=== PATIENT | male | born 1935 | race Caucasian/White ===

== ENCOUNTER 2016-07-20 12:41 | Observation (INO) | payer MEDICARE, OTHER ==
--- NOTE | ~2016-07-20 | CR72 ---
[facility] A Service of [facility] & [facility] RADIOLOGY TEXT RESULTS PATIENT: LYN CARTER LOCATION: [place] [address] : 36 UNIT #: [id number] AGE: [address]: Nelly Sterling MD SEX: M ORDER DR: [id number] [facility] [address]. [place], [place] [address] [id number] MR#: [id number] Acc #: [id number] NAME: LYN CATRER : 1935 SEX: M STUDY DATE/TIME: 07/20/2016 17:01 UNIT: CEDOF ROOM: [facility] STUDY DESCRIPTION: CR Chest Single View Portable Attending Physician: Nelly Sterling M.D. Ordering Physician: Alcira Thomas M.D. Primary Care Physician: Primary Care Physician No MEDICAL IMAGING REPORT This report is preliminary unless electronic signature is present EXAM Portable chest 1 view, 07/20/2016 COMPARISON 08/19/2014 HISTORY Syncope today FINDINGS Left basilar opacity due to infiltrate or atelectasis, new since the prior study. There is probably mild cardiomegaly though submaximal inspiratory effort may exaggerate that appearance. There is no pneumothorax or acute bony finding. Dictated by... Dc Harper M.D. THIS IS AN ELECTRONICALLY VERIFIED REPORT Dc Harper M.D. at 07/23/2016 4:32 PM CAROLINE/cheikh TD: 07/21/2016 10:03 JOB #: [id number] MEDICAL IMAGING REPORT COPY
--- NOTE | ~2016-07-20 | US37 ---
[facility] A Service of [facility] & [facility] RADIOLOGY TEXT RESULTS PATIENT: LYN CARTER LOCATION: [facility] [id number] : 36 UNIT #: [id number] AGE: [address]: Nelly Sterling MD SEX: M ORDER DR: [id number] [facility] [address]. [place], [place] [address] [id number] MR#: [id number] Acc #: [id number] NAME: LYN CARTER : 1935 SEX: M STUDY DATE/TIME: 07/21/2016 9:49 UNIT: [facility] ROOM: [facility] STUDY DESCRIPTION: US Carotid W/Doppler Bilateral Attending Physician: Nelly Sterling M.D. Ordering Physician: Nelly Sterling M.D. Primary Care Physician: No Primary Care Physician MEDICAL IMAGING REPORT This report is preliminary unless electronic signature is present EXAM Carotid duplex scan date of examination 07/21/2016 HISTORY Syncope. Hypertension. Hyperlipidemia. Diabetes mellitus. FINDINGS The right common carotid artery has no plaque. There is a small amount of heterogeneous plaque in the right carotid bulb. The remainder of the right internal and external carotid artery are patent without plaque. Peak systolic velocity in the mid right internal carotid artery is 72 cm/sec with an end diastolic velocity of 19 cm/sec. The ICA/CCA ratio on the right is 1.23. Peak systolic velocity in the right external carotid artery is 67 cm/sec. The right vertebral artery is patent with antegrade flow. The left common carotid artery has no significant plaque. There is only a small amount of heterogeneous plaque in the left carotid bulb. The remainder of the left internal and external carotid artery are patent without plaque. Peak systolic velocity in the distal left internal carotid artery is 87 cm/sec with an end diastolic velocity of 21 cm/sec. The ICA/CCA ratio on the left is 1.12. Peak systolic velocity in the left external carotid artery is 88 cm/sec. The left vertebral artery is patent with antegrade flow. IMPRESSION 1. Small amount of plaque, but no significant stenosis (less than 50%) in the internal and external carotid arteries bilaterally. Patent vertebral arteries bilaterally with antegrade flow. [facility] A Service of [facility] & [facility] RADIOLOGY TEXT RESULTS PATIENT: LYN CARTER LOCATION: [facility] [id number] : 36 UNIT #: [id number] AGE: [address]: Nelly Sterling MD SEX: M ORDER DR: Dictated by... Nilay Claudio M.D. THIS IS AN ELECTRONICALLY VERIFIED REPORT Nilay Claudio M.D. at 07/23/2016 7:32 AM MARBELLA/julissa TD: 07/22/2016 02:38 JOB #: [id number] MEDICAL IMAGING REPORT COPY
--- NOTE | ~2016-07-20 | DS ---
Unit #: [id number] #: [id number] Patient: LYN CARTER [id number] [address] [place], [place] [address] [id number] MR#: [id number] NAME: LYN CARTER. ROOM: 57 Age: 81 Sex: M Admission Date: 07/20/2016 : 1935 Discharge Date: 07/22/2016 Attending Physician: Nelly Sterling M.D. DISCHARGE SUMMARY REASON FOR ADMISSION Weakness. HISTORY OF PRESENT ILLNESS/HOSPITAL COURSE The patient is an 81-year-old male with underlying history of chronic obstructive pulmonary disease, diabetes, hypertension, hyperlipidemia, and GERD, who was admitted secondary to above. He was initially noted to be in acute kidney injury with an elevated creatinine of 1.4 with a GFR of 51. His initial UA was positive and therefore he was admitted for the same. Apparently, he had seen his primary care physician earlier in the day and he actually had a syncopal episode while he was there. He underwent ultrasound of his carotids, which was negative for acute carotid stenosis as well as CT of head without contrast, which was negative as well. His final urine culture result did not yield any acute bacterial growth. While he was here, he was placed on Rocephin IV. His vitamin B12 level did come back decreased at 305. Cardiac enzymes were cycled. Orthostatics were also performed. All laboratory studies were otherwise unremarkable. 2D echo was ordered and done, results are currently pending. I have told him that today he may be discharged home. He should follow with his primary care physician in about 7 to 10 days for a 2D echocardiogram. Results at the time of discharge; his creatinine is 0.9. His GFR is greater than 60. I have discontinued his naproxen; otherwise, his home medications will remain the same. We will also give him prescription for Levaquin 250 mg p.o. daily x3 days despite his urine culture being negative, his initial urinalysis was quite abnormal and he should follow up with his PCP in approximately 7 days for repeat UA as well. DISCHARGE DIAGNOSES 1. Syncopal episode. 2. Acute kidney injury. 3. Diabetes, type 2. Unit #: [id number] #: [id number] Patient: LYN CARTER 4. Abnormal urinalysis, possible urinary tract infection. 5. Hypertension. 6. Hyperlipidemia. 7. Osteoarthritis. 8. Chronic obstructive pulmonary disease. DISCHARGE MEDICATIONS Remain unchanged from home medications. Dictated by... Shannon Graff/felicia TD: 07/25/2016 16:19 JOB #: [id number] DISCHARGE SUMMARY X Nelly Sterling MD X DISCHARGE SUMMARY
--- NOTE | ~2016-07-20 | EKG ---
PATIENT: LYN CARTER UNIT #: [id number] Ventricular Rate: 87 BPM Atrial Rate: 87 BPM P-R Interval: 164 ms QRS Duration: 98 ms Q-T Interval: 388 ms QTC Calculation(Bezet): 466 ms P [place]: 68 degrees Calculated R [place]: -36 degrees Calculated T [place]: 16 degrees Diagnosis Line: Sinus rhythm with occasional Premature ventricular Diagnosis Line: complexes Diagnosis Line: Left axis deviation Diagnosis Line: Abnormal ECG Diagnosis Line: When compared with ECG of 17-MAR-2014 08:27, Diagnosis Line: Premature ventricular complexes are now Present Diagnosis Line: Confirmed by DANILO ASCENCIO MD ([id number]) on 07/20/2016 Diagnosis Line: 4:48:01 PM INTERPRETING MD: SILVA LOU
--- NOTE | ~2016-07-20 | HP ---
Unit #: [id number] #: [id number] Patient: LYN CARTER [id number] [address] [address] [id number] MR#: [id number] NAME: LYN CARTER. ROOM: Age: 81 Sex: M Admission Date: 07/20/2016 : 1935 Attending Physician: Alisia Wood M.D. Primary Care Physician: No Primary Care Physician HISTORY AND PHYSICAL CHIEF COMPLAINT Weakness. HISTORY OF PRESENT ILLNESS The patient is an 81-year-old male with a past medical history of chronic obstructive pulmonary disease, diabetes, hypertension, hyperlipidemia, gastroesophageal reflux disease and osteoarthritis. He presented to the emergency department for evaluation of the above. The patient states that he has not been feeling well since 07/17/2016. He apparently had nausea, vomiting and diarrhea. He states that the vomiting has resolved. He had more than 10 bouts of nonbloody diarrhea yesterday, but he has not had any bowel movements today. He denies any abdominal pain. He has noticed decreased urine output, but no burning with urination. No chest pain. No palpitations. No fever. No cough or cold symptoms. He saw his primary care physician today and states that he started to feel "hot." He then passed out. He was brought to the emergency department for further evaluation. In the emergency department initial pulse and blood pressure were 77 and 98/69 respectively. Urinalysis showed findings concerning for urinary tract infection. He was given Levaquin in the emergency department. He is being admitted to [facility] for evaluation and further treatment. PAST MEDICAL HISTORY 1. Admission to [facility] March 03 through 2013 for right total knee replacement. 2. Diabetes. 3. Hypertension. 4. Hyperlipidemia. 5. Osteoarthritis. 6. Gastroesophageal reflux disease. 7. Chronic obstructive pulmonary disease. PAST SURGICAL HISTORY 1. Bilateral knee replacements. 2. Appendectomy. 3. Tonsillectomy. 4. Hemorrhoidectomy. 5. Hydrocele repair. 6. Bunionectomy. Unit #: [id number] #: [id number] Patient: LYN CARTER 7. Cholecystectomy. 8. Back surgery. SOCIAL HISTORY The patient lives with his . There is no tobacco or alcohol use. His code status is a full code. FAMILY HISTORY Notable for diabetes. ALLERGIES No known drug allergies. HOME MEDICATIONS 1. Avapro 150 mg daily. 2. Amaryl 2 mg daily. 3. Tradjenta 5 mg daily. 4. Pantoprazole 40 mg daily. 5. Naproxen 500 mg b.i.d. 6. Trilipix 135 mg daily. 7. Tamsulosin 0.4 mg b.i.d. 8. Lamisil 250 mg daily. 9. [place] 3 two g b.i.d. 10. Aspirin 81 mg daily. 11. Fexofenadine 180 mg b.i.d. 12. Lomotil. REVIEW OF SYSTEMS A complete review of systems is negative except as indicated in the history of present illness. PHYSICAL EXAMINATION GENERAL: The patient is a very pleasant male who appears younger than his stated age. VITALS: Temperature 97.9, pulse 77, respiratory rate 13, blood pressure 98/69, oxygen saturation 96% on room air. HEENT: The head is atraumatic. Mucous membranes are dry. NECK: Supple. Trachea midline. LUNGS: Clear to auscultation bilaterally with no increased work of breathing. HEART: Regular rate and rhythm. ABDOMEN: Soft, nontender, with bowel sounds present in all four quadrants. EXTREMITIES: Nontender with no pedal edema. NEUROLOGIC: The patient is awake and alert. He follows commands. PSYCHIATRIC: Mood and affect are normal. The patient is cooperative. SKIN: Skin of examined areas is warm and dry. DIAGNOSTIC STUDIES LABORATORY: Troponin is less than 0.05. CBC notable for hemoglobin 16.2, hematocrit 48.6 respectively. Urinalysis notable for 1+ leukocyte esterase, positive nitrate, 3+ protein, 100 glucose, 10-25 white blood cells, 2+ bacteria with just a few squamous cells, 10-25 granular casts also noted. INR 1.1. CMP notable for glucose 140, BUN 25, creatinine 1.4, AST 76, ALT 72, alkaline phosphatase 29, magnesium 1.8. CARDIOVASCULAR: EKG shows sinus rhythm with occasional PVCs and rate of 87 beats per minute. Unit #: [id number] #: [id number] Patient: LYN CARTER The patient is an 81-year-old male with 1. Syncope. The patient denies ever having a syncopal episode in the past. He had a cardiac catheterization in 1999 at [facility] (no records). 2. Urinary tract infection. There are no urine cultures in [facility] for review. He received Levaquin in the emergency department. 3. Acute kidney injury. The patient's creatinine was 1.1 on 05/04/2016 and it is 1.4 today. He has had decreased p.o. intake with vomiting and diarrhea. 4. Transaminitis. 5. Chronic obstructive pulmonary disease. 6. Diabetes. 7. Hypertension. 8. Hyperlipidemia. 9. Gastroesophageal reflux disease. 10. Osteoarthritis. PLAN 1. Admit for observation to intermediate level. 2. Healthy heart, consistent carb diet if passes bedside swallow. 3. Bedrest. 4. Fall precautions. 5. Orthostatics q. shift. 6. Two-dimensional echo. 7. Serial cardiac enzymes. 8. Monitor blood pressure closely. 9. Normal saline at 75 mL an hour. 10. Blood cultures times two. 11. Urine culture and sensitivity on urine in the lab. 12. Rocephin 1 g IV daily pending results of urine culture. 13. Supplemental oxygen. 14. P.r.n. duo-nebs. 15. Low-dose sliding scale insulin with Accu-Cheks. 16. Strict ins and outs. 17. Check CPK. 18. Bladder scan. 19. Chest x-ray. 20. Repeat labs in the morning. 21. SCDs for DVT prophylaxis. CODE STATUS Regarding code status, the patient is a full code. Dictated by Shannon Cabrales TD: 07/20/2016 16:10 JOB #: [id number] Unit #: [id number] #: [id number] Patient: LYN CARTER HISTORY AND PHYSICAL X Alcira Thomas MD HISTORY AND PHYSICAL
[~2016-07-20 12:41] MED LIST: ALLEGRA ALLERG180 MG PO; AMARYL1 MG PO; ASPIRINEC PO; AVAPRO300 M1 PO; FENOFIBRIC ACI135 MG PO; FISH OIL 1,001000 MG PO; FLOMAX0.4 M1 PO; GLUCOPHAGE500 M1 PO; NAPROSYN-EC500 M1 PO; NORCO 10-325 TA1 TAB PO; PANTOPRAZOLE SO40 MG PO; TRADJENTA5 MG PO
[2016-07-20 12:58] LABS: POC - CKMB 1.1 ng/mL (0.0-7.9); POC - TROPONIN <0.05 ng/mL (<=0.05)
[2016-07-20 13:02] LABS: URINE SOURCE CLEAN CATCH
[2016-07-20 13:03] LABS: BASOPHIL% 0.3 % (0-2.5); EOSINOPHIL# 0.1 X10e3 (0-0.7); EOSINOPHIL% 1.7 % (0.0-7.0); HEMATOCRIT 48.6 % (38.0-50.0); HEMOGLOBIN 16.2 gm/dL (13.0-16.0); LYMPHOCYTE# 1.2 X10e3 (1.0-3.5); LYMPHOCYTE% 18.9 % (17.0-45.0); MEAN CELL VOLUME 92.9 FL (83-96); MEAN CORPUSCULAR HGB CONC 33.4 g/dL (30-36); MONOCYTE# 0.6 X10e3 (0-1.0); MONOCYTE% 10.1 % (3.0-12.0); NEUTROPHIL# 4.3 X10e3 (1.5-7.1); PLATELET COUNT 209 X10e3 (140-420); RED BLOOD COUNT 5.23 X10e (3.90-5.60); RED CELL DISTRIBUTION WIDTH 13.9 % (11.0-15.5); WHITE BLOOD COUNT 6.3 X10e3 (4.0-10.5)
[2016-07-20 13:04] LABS: DIFF IND NO
[2016-07-20 13:05] LABS: URINE APPEARANCE TURBID; URINE BLOOD NEG (NEG); URINE COLOR DK YELLOW; URINE GLUCOSE 100 MG/DL (NEG); URINE KETONE TRACE (NEG); URINE LEUKOCYTE ESTERASE 1+ (NEG); URINE NITRATE POS (NEG); URINE PROTEIN 3+ (NEG)
[2016-07-20 13:08] LABS: CULTURE INDICATED? YES; URINE SQUAMOUS EPITHELIAL CELL FEW /[HPF]
[2016-07-20 13:17] LABS: INR 1.1; PARTIAL THROMBOPLASTIN TIME 24.3 SECONDS (23.5-31.3); PROTHROMBIN TIME (PATIENT) 11.1 SECONDS (9.6-11.5)
[2016-07-20 13:18] LABS: U HYALINE CASTS AUWI 100-200 /[LPF]; URINE BILIRUBIN POS (NEG)
[2016-07-20 13:19] LABS: URBCS1 AUWI 0-2 /[HPF] (0-2); URINE CRYSTALS CALCIUM OXALATE /[HPF]; URINE MUCUS PRESENT
[2016-07-20 13:20] LABS: URINE BACTERIA AUWI 2+ (NEGATIVE)
[2016-07-20 13:54] LABS: BILIRUBIN, DIRECT 0.2 mg/dL (0.0-0.2); BILIRUBIN,INDIRECT 0.6 mg/dL (0.0-0.9); BILIRUBIN,TOTAL 0.8 mg/dL (0.2-2.0); BUN/CREATININE RATIO 17.85; CALCIUM SERUM 9.2 mg/dL (8.4-10.2); CREATININE SERUM 1.4 mg/dL (0.6-1.4); GLOM FILT RATE Estimated 51.8 mL/min (>60); MAGNESIUM 1.8 mg/dL (1.6-3.0); POTASSIUM 3.7 mmol/L (3.5-5.1)
[2016-07-20 14:27] LABS: POC - CKMB <1.0 ng/mL (0.0-7.9); POC - TROPONIN <0.05 ng/mL (<=0.05)
[2016-07-20] MEDS ORDERED: AVAPRO150 MG PO (14:55)
[2016-07-20] MEDS ORDERED: PANTOPRAZOLE SO40 MG PO (14:56)
[2016-07-20] MEDS ORDERED: TRADJENTA5 MG PO (14:56)
[2016-07-20] MEDS ORDERED: AMARYL2 MG PO (14:56)
[2016-07-20] MEDS ORDERED: TRILIPIX135 MG PO (14:59)
[2016-07-20] MEDS ORDERED: NAPROSYN-EC500 M1 DOB (14:59)
[2016-07-20] MEDS ORDERED: TAMSULOSIN HCL0.4 MG PO (15:00)
[2016-07-20] MEDS ORDERED: LAMISIL250 MG PO (15:00)
[2016-07-20] MEDS ORDERED: ASPIRINEC PO (15:02)
[2016-07-20] MEDS ORDERED: OMEGA-31000 M1 PO (15:02)
[2016-07-20] MEDS ORDERED: ALLEGRA ALLERG180 MG PO (15:03)
[2016-07-20] MEDS ORDERED: LOMOTIL TABLET1 TAB (15:03)
[2016-07-20 21:52] LABS: CK TOTAL 32 IU/L (36-174)
[2016-07-21 04:18] LABS: BASOPHIL% 0.5 % (0-2.5); EOSINOPHIL# 0.1 X10e3 (0-0.7); EOSINOPHIL% 2.4 % (0.0-7.0); HEMATOCRIT 42.3 % (38.0-50.0); LYMPHOCYTE# 1.9 X10e3 (1.0-3.5); MEAN CELL VOLUME 92.8 FL (83-96); MEAN CORPUSCULAR HGB CONC 33.4 g/dL (30-36); MEAN PLATELET VOLUME 7.8 FL (6.5-11.5); MONOCYTE# 0.6 X10e3 (0-1.0); MONOCYTE% 9.8 % (3.0-12.0); NEUTROPHIL# 3.4 X10e3 (1.5-7.1); NEUTROPHIL% 56.3 % (40-75); PLATELET COUNT 183 X10e3 (140-420); RED BLOOD COUNT 4.56 X10e (3.90-5.60); RED CELL DISTRIBUTION WIDTH 13.7 % (11.0-15.5); WHITE BLOOD COUNT 6.1 X10e3 (4.0-10.5)
[2016-07-21 04:22] LABS: DIFF IND NO; HEMOGLOBIN 14.2 gm/dL (13.0-16.0)
[2016-07-21 04:43] LABS: ALBUMIN SERUM 3.3 g/dL (3.5-5.0); ALKALINE PHOSPHATASE 25 U/L (32-92); ALT (SGPT) 55 U/L (10-40); AST (SGOT) 44 U/L (10-42); BILIRUBIN,TOTAL 0.8 mg/dL (0.2-2.0); BLOOD UREA NITROGEN 22 mg/dL (9-23); CALCIUM SERUM 8.6 mg/dL (8.4-10.2); CARBON DIOXIDE 25 mmol/L (22-31); CHLORIDE 110 mmol/L (100-111); CREATININE SERUM 1.1 mg/dL (0.6-1.4); GLOM FILT RATE Estimated ABOVE60 mL/min (>60); GLUCOSE FASTING 95 mg/dL (70-110); POTASSIUM 3.7 mmol/L (3.5-5.1); PROTEIN TOTAL SERUM 5.8 g/dL (6.0-8.3); SODIUM 140 mmol/L (135-145)
[2016-07-21 04:53] LABS: CK TOTAL 37 IU/L (36-174)
[2016-07-22 07:05] LABS: BASOPHIL% 0.6 % (0-2.5); EOSINOPHIL# 0.1 X10e3 (0-0.7); EOSINOPHIL% 2.4 % (0.0-7.0); HEMATOCRIT 41.6 % (38.0-50.0); HEMOGLOBIN 13.9 gm/dL (13.0-16.0); LYMPHOCYTE# 2.3 X10e3 (1.0-3.5); LYMPHOCYTE% 38.4 % (17.0-45.0); MEAN CELL VOLUME 93.2 FL (83-96); MEAN CORPUSCULAR HEMOGLOBIN 31.2 PG (28-34); MEAN CORPUSCULAR HGB CONC 33.5 g/dL (30-36); MEAN PLATELET VOLUME 8.2 FL (6.5-11.5); MONOCYTE# 0.6 X10e3 (0-1.0); MONOCYTE% 10.3 % (3.0-12.0); NEUTROPHIL# 2.9 X10e3 (1.5-7.1); NEUTROPHIL% 48.3 % (40-75); PLATELET COUNT 180 X10e3 (140-420); RED BLOOD COUNT 4.46 X10e (3.90-5.60); RED CELL DISTRIBUTION WIDTH 13.9 % (11.0-15.5); WHITE BLOOD COUNT 5.9 X10e3 (4.0-10.5)
[2016-07-22 07:07] LABS: DIFF IND NO
[2016-07-22 07:54] LABS: ALBUMIN SERUM 3.2 g/dL (3.5-5.0); ALKALINE PHOSPHATASE 26 U/L (32-92); ALT (SGPT) 50 U/L (10-40); AST (SGOT) 39 U/L (10-42); BILIRUBIN,TOTAL 0.7 mg/dL (0.2-2.0); BLOOD UREA NITROGEN 20 mg/dL (9-23); BUN/CREATININE RATIO 22.22; CALCIUM SERUM 8.9 mg/dL (8.4-10.2); CARBON DIOXIDE 26 mmol/L (22-31); CHLORIDE 109 mmol/L (100-111); CREATININE SERUM 0.9 mg/dL (0.6-1.4); GLOM FILT RATE Estimated ABOVE60 mL/min (>60); GLUCOSE FASTING 114 mg/dL (70-110); MAGNESIUM 1.6 mg/dL (1.6-3.0); POTASSIUM 4.4 mmol/L (3.5-5.1); PROTEIN TOTAL SERUM 5.4 g/dL (6.0-8.3); SODIUM 143 mmol/L (135-145)
[2016-07-22] MEDS ORDERED: LEVAQUIN250 MG PO (09:56)
== END 2016-07-22 14:02 | disposition home or self-care (01) ==
LOC: CED 12:41 → CEDOF 15:50 → C5C 07-21 13:39
PROVIDERS: Family Medicine; Student in an Organized Health Care Education/Training Program
DX: R55 Syncope and collapse (principal); N17.9 Acute kidney failure, unspecified; E11.9 Type 2 diabetes mellitus without complications; N39.0 Urinary tract infection, site not specified; R74.0 Nonspecific elevation of levels of transaminase and lactic acid dehydrogenase [LDH]; J44.9 Chronic obstructive pulmonary disease, unspecified; I10 Essential (primary) hypertension; E78.5 Hyperlipidemia, unspecified; K21.9 Gastro-esophageal reflux disease without esophagitis; M19.90 Unspecified osteoarthritis, unspecified site; Z96.653 Presence of artificial knee joint, bilateral; Z90.49 Acquired absence of other specified parts of digestive tract; Z83.3 Family history of diabetes mellitus; Z79.82 Long term (current) use of aspirin
CPT/HCPCS: 36415; 71010; 80048; 80053; 80076; 81003; 82550; 82553; 82607; 82947; 83735; 84484; 85025; 85610; 85730; 87086; 92610; 93005; 93306; 93880; 94760; 96360; 96361; 96374; 99285; G0378; G8996-GN; G8997-GN; G8998-GN; J0696; J1956